=== PATIENT | female | born 1975 | race Caucasian/White ===

== ENCOUNTER 2016-09-03 08:42 | Day surgery (SDC) | payer MEDICARE, OTHER ==
--- OUTSIDE RECORDS SUMMARY | 2016-09-03 08:46 | XMS REPORT | Continuity of Care Document ---
:1975 Author Organization [facility] ([facility]) Address [address] [place] [address] Phone [phone] Care Team Providers Name Role Phone Provider, No-Primary Care Primary Care Provider Unavailable Source Comments This disclosure is being made pursuant to the Care Everywhere program, applicable federal and state laws, and may not contain all informaitonavailable regarding this patient.[facility] ([facility]) Active Allergies and Adverse Reactions Not on File Current Medications Not on file Active Problems Not on file Social History Tobacco Use Types Packs/Day Years Used Date Never Assessed Plan of Care Health Maintenance Due Date Last Done Comments Hepatitis B Vaccine (1 of 3 - Primary Series) 1974 Tdap Vaccine 1985 Lipid Disorder Screening 1992 MMR Vaccine 1992 Td Vaccine 1992 Cervical Cancer Screening 2004 Mammogram 2014 Influenza Vaccine: Seasonal (#1) 12/15/2015 Results from Last 3 Months Not on file
--- NOTE | 2016-09-03 09:36 | OR ---
Anesthesia Pre Procedure Eval Date of Service: 09/03/16 Pre Procedure Evaluation: Last Vital Signs Temp 36.3 C L 09/03/16 09:01 Pulse 77 09/03/16 09:01 Resp 18 09/03/16 09:01 BP 141/89 09/03/16 09:01 Pulse Ox 98 09/03/16 09:01 O2 Oxygen Delivery Method Room Air Anesthesia Pre Procedure Evaluation DATE: 09/03/2016 TIME: 02 12 INDICATIONS: Bilateral occipital neuralgia, headaches. PAST MEDICAL HISTORY: Ms. Alcocer has had a long history of multiple pain issues. Her current primary issue is severe headaches which are primarily left greater than right supraorbital pain, with associated tenderness and pain at the distribution of the greater occipital nerves bilaterally. She is somewhat more tender to touch at the site of the occipital nerve emergence at the base of the skull however not as tender as would be expected considering the pain associated with her supraorbital pain. She has had a previous injection which she describes as a Botox series of injections just above and lateral to the glabella. This procedure was done in [place] many years ago but she does not remember any more about this particular injection. Chiropractic treatment does help however the pain is constant and it is every day. Pain medication has been of limited relief. EXAM: Heart S1 and S2 regular; lungs clear bilaterally ASSESSMENT OF MEDICAL STATUS: After lengthy discussion and assessment of past health issues regarding pain, she accepts and agrees to occipital nerve block bilaterally only under sedation. Her concerns are primarily the triggering of phantom pain with any manipulation around the site of the left occipital nerve. Considering her complex pain issues and agreed to the sedation and recommend that if this block does not work. She pursues further treatment at a pain clinic similar to those in either [place] or [facility]. PLANNED PROCEDURE: Bilateral occipital nerve block of the greater occipital nerve. Home Medications: HOME MEDICATIONS Naproxen [Naprosyn] 500 mg PO BID PRN 07/26/14 [Last Taken 07/25/14 08:00 1 tab] traMADol HCL [Ultram] 50 - 100 mg PO QID PRN 07/26/14 [Last Taken 07/23/14] ALPRAZolam [Xanax] 0.5 mg PO BID PRN 08/26/16 [Last Taken Unknown]
[2016-09-03] MEDS ORDERED: RINGERS SOLUTION,LACTATED 1,000 ML IV ONE ×2 (09:55)
[2016-09-03] MEDS ORDERED: LIDOCAINE HCL/PF 5 ML VIAL IJ ONE (10:00)
[2016-09-03] MEDS ORDERED: DEXAMETHASONE SOD PHOSPHATE 10 MG/ML VIAL IJ ONE (10:00)
--- NOTE | 2016-09-03 10:23 | OR ---
Anesthesia Procedure Note - Anesthesia Procedure Note Date of Service: 09/03/16 Narrative: Vital Signs - Last Taken Temp 36.3 C L 09/03/16 09:01 Pulse 77 09/03/16 09:01 Resp 18 09/03/16 09:01 BP 141/89 09/03/16 09:01 Pulse Ox 98 09/03/16 09:01 O2 Oxygen Delivery Method Room Air 09/03/16 10:17 ANESTHESIA PROCEDURE NOTE Date of Procedure: 09/03/2016 Time of procedure: 10:00. Performed by: Grey Heaton CRNA, AQUACULTURIST, MSN Driver Guard: Yoli Alcantar RN. Preprocedure diagnosis: Bilateral occipital neuralgia. Post procedure diagnosis: Same. Procedure: Occipital nerve block bilateral greater occipital nerve with ultrasound. Indications: Supraorbital pain and headaches, occipital neuralgia. Findings: See below. Details of the procedure: After the history and physical was complete and the procedure and risks were explained, the patient was brought to or #3 placed in the sitting position. Considering her past pathology and her current psychological state sedation was used for this procedure. A #22-gauge IV was established in the left hand after localization with 1% lidocaine solution. Lactated Ringer was opened TKO and fentanyl 100 g was given plus incremental doses of Versed totaling 10 mg. It was obvious that her current use of Xanax was sufficient enough to minimize the results of the Versed I was giving, as such a administered 40 mg of propofol with good anxiety or lysis for the remainder of the procedure. The base of the head was prepped with chlorhexidine and draped in a sterile fashion. With use of ultrasound guidance the occipital artery was identified and the area just medial to the occipital artery was localized using a 25-gauge needle. The base of the skull was contacted with a 25-gauge needle and slightly withdrawn where 5 milligrams of dexamethasone in a mixture of 1% lidocaine totaling 5 mL was injected. Lesser occipital nerve: An area slightly left of midline between the superior nuchal line and the mastoid process was injected with 1% lidocaine using a 25- gauge needle. Base of the skull was contacted through this site with a 25- gauge needle and then using a fanning motion the lesser occipital nerve was localized with a mixture of 5 mg dexamethasone and lidocaine 1% totaling 5 mL solution. Pain: from 5/10 to 0/10 including phantom pain EBL: Minimal/negative. Fluids: N/A. Specimen: N/A. Post procedure condition: The patient tolerated the procedure well. No complications were noted. Thank you for this consultation. Grey Heaton CRNA, MSN, AQUACULTURIST
[2016-09-03 11:16] VITALS: BP 126/83
== END 2016-09-03 08:43 | disposition home or self-care (01) ==
LOC: AMB 08:42
PROVIDERS: ATTEND Nurse Practitioner
PROC: 3E0T3BZ Introduction of Anesthetic Agent into Peripheral Nerves and Plexi, Percutaneous Approach (ICD-10-PCS; 2016-09-03)
PROC: 3E0X33Z Introduction of Anti-inflammatory into Cranial Nerves, Percutaneous Approach (ICD-10-PCS; 2016-09-03)
PROC: 3E0X3BZ Introduction of Anesthetic Agent into Cranial Nerves, Percutaneous Approach (ICD-10-PCS; 2016-09-03)
PROC: 3E0T33Z Introduction of Anti-inflammatory into Peripheral Nerves and Plexi, Percutaneous Approach (ICD-10-PCS; principal; 2016-09-03 09:15)
DX: M54.81 Occipital neuralgia (principal); Z68.32 Body mass index [BMI] 32.0-32.9, adult